=== PATIENT | male | born 1935 | race Caucasian/White ===

== ENCOUNTER 2017-10-02 14:41 | Emergency (ER) | payer MEDICARE, OTHER, SELFPAY ==
[2017-10-02 14:59] VITALS: BP 174/86; PULSE 76; RESP 16; TEMP 36.9; O2SAT 97
--- NOTE | 2017-10-02 16:12 | ED_ITS ---
HPI - Extremity Injury (Upper) <CHENG Arnold - Last Filed: 10/02/17 21:59> General Chief Complaint: Extremity Injury, Upper Stated Complaint: CUT PALM OF HAND Time Seen by Provider: 10/02/17 15:28 History of Present Illness HPI narrative: 81-year-old male with history of dementia here for laceration to his left palm area. He was at home and walking in the garage when he had a ground level fall with outstretched left hand causing laceration to the palm area after hitting weed eater. No known head injuries. No loss of consciousness. No other injuries are reported. Unknown last tetanus shot. Related Data Home Medications Medication Instructions Recorded Confirmed ASPIRIN (#ASPIR 81) 81 mg PO EVERY OTHER DAY #0 09/21/11 alfuzosin [Uroxatral] 10 mg #0 04/11/16 Previous Rx's Medication Instructions Recorded donepezil [Aricept] 10 mg PO HS #90 tab 08/29/17 Allergies Allergy/AdvReac Type Severity Reaction Status Date / Time No Known Allergies Allergy Uncoded 08/16/17 11:50 Review of Systems <CHENG Arnold - Last Filed: 10/02/17 21:59> Constitutional Denies chills, Denies fever(s), Denies lethargy and Denies weakness Eyes Denies change in vision, Denies eye discharge, Denies irritation and Denies loss of vision ENT Ears, Nose, Mouth, and Throat: Denies change in voice, Denies neck pain and Denies sore throat Cardiovascular Denies chest pain, Denies irregular heart rhythm, Denies lightheadedness, Denies palpitations and Denies orthopnea Gastrointestinal Gastrointestinal: Denies abdominal pain, Denies change in bowel habits, Denies diarrhea, Denies nausea and Denies vomiting Genitourinary Denies hematuria, Denies flank pain, Denies urinary incontinence and Denies urinary urgency Musculoskeletal Denies neck pain Comments: Laceration of left palm Integumentary/Breasts Denies pruritus, Denies erythema, Denies rash and Denies wounds Neurologic Denies loss of vision and Denies weakness Endocrine Denies palpitations Exam <CHENG Arnold - Last Filed: 10/02/17 21:59> Initial Vital Signs Initial Vital Signs: Vital Signs Temperature 98.4 F 10/02/17 14:59 Pulse Rate 76 10/02/17 14:59 Respiratory Rate 16 10/02/17 14:59 Blood Pressure 174/86 H 10/02/17 14:59 Pulse Oximetry 97 10/02/17 14:59 Const General: cooperative and well developed Nutritional Appearance: well nourished Orientation: alert, awake, oriented to person, oriented to place and not confused [facility] Mouth: oral mucosae normal and moist mucous membranes Eyes Conjunctivae: conjunctivae normal Sclera: sclerae normal Pupils: PERRL EOM: EOM intact bilaterally Neck Neck: normal visual inspection, No midline deformity and No tender Resp Effort & Inspection: normal respiratory effort, able to speak in complete sentences, no respiratory distress and no use of accessory muscles Auscultation: clear to auscultation bilaterally, no rales, no rhonchi and no wheezes Cardio Rate: regular rate Rhythm: regular rhythm Heart Sounds: no click, no gallops, no murmurs and no rubs GI Inspection: non-distended Palpation: soft, no hepatosplenomegaly, No guarding, No pulsatile mass and No tender Auscultation: normal bowel sounds Skin General: no rashes or lesions noted, No jaundice and No petechiae Extrem Other: 6 cm laceration to the left palm area with another 2 cm laceration just to the radial aspect of the left palm. Distal sensation is intact. Distal range of motion is intact. Distal cap refill less than 2 sec. <Tish Kwong DO - Last Filed: 10/03/17 08:55> Initial Vital Signs Initial Vital Signs: Vital Signs Temperature 98.4 F 10/02/17 14:59 Pulse Rate 76 10/02/17 14:59 Respiratory Rate 16 10/02/17 14:59 Blood Pressure 174/86 H 10/02/17 14:59 Pulse Oximetry 97 10/02/17 14:59 Procedures <CHENG Arnold - Last Filed: 10/02/17 21:59> Joint Aspiration/Injection Laceration 1: Site: hand Side (If applicable): left Size (cm): 6 Description: flap Depth: simple, single layer Local Anesthetic: lidocaine 1% Amount of anesthesia used (mL): 4 Pre-repair: wound explored and irrigated extensively Skin layer closed with: nylon Size (cm): 4-0 Number of sutures: 10 Technique: simple, interrupted Size: 4-0 Laceration 2: Site: hand Side (If applicable): left Size (cm): 1.5 Description: flap Depth: simple, single layer Pre-repair: wound explored and irrigated extensively Skin layer closed with: nylon Size (cm): 4-0 Number of sutures: 2 Technique: simple, interrupted Course <CHENG Arnold - Last Filed: 10/02/17 21:59> Orders Ordered: Discontinued Medications Diphtheria/Tetanus/Acell Pertussis (Adacel) 0.5 ml IM .ONCE ONE Stop: 10/02/17 16:51 Last Admin: 10/02/17 17:18 Dose: 0.5 ml Vital Signs - 8 hr 10/02/17 14:59 10/02/17 17:36 Temperature 98.4 F Pulse Rate 76 69 Respiratory Rate 16 20 Blood Pressure 174/86 H 166/82 H Pulse Oximetry 97 97 <Tish Kwong DO - Last Filed: 10/03/17 08:55> Orders Ordered: Discontinued Medications Diphtheria/Tetanus/Acell Pertussis (Adacel) 0.5 ml IM .ONCE ONE Stop: 10/02/17 16:51 Last Admin: 10/02/17 17:18 Dose: 0.5 ml Vital Signs - 8 hr 10/02/17 14:59 10/02/17 17:36 Temperature 98.4 F Pulse Rate 76 69 Respiratory Rate 16 20 Blood Pressure 174/86 H 166/82 H Pulse Oximetry 97 97 MDM - Extremity Injury (Upper) <CHENG Arnold - Last Filed: 10/02/17 21:59> Medical Records Lacerations left palmar closed with 4 0 nylon sutures with 10 simple interrupted sutures to long laceration and 2 simple interrupted sutures to shorter laceration. Patient tolerated well no complications. Tetanus updated in the emergency room today. Wound dressed with bacitracin and a dressing. Sutures removed in 7-10 days. Keep wound area clean and dry for 24 hr after that may shower briefly dry wound after shower redressed with bacitracin dressing. Dress wound daily with bacitracin and dressing until healed. For any worsening symptoms return to the emergency room. Discharge Plan Departure Patient Disposition: Home, Self-Care Clinical Impression: Laceration of left hand Discharge Date/Time: 10/02/17 17:36 Interventions: ED Discharge Assessment Last Done: 10/02/17 17:36 Instructions: DI for Laceration Repair Activity Restrictions/Additional Instructions: Lacerations left palm closed with 10 simple sutures to long laceration and 2 sutures to shorter laceration. Tetanus updated in the emergency room today. Wound dressed with bacitracin and a dressing. Sutures removed in 7-10 days. Keep wound area clean and dry for 24 hr after that may shower briefly then dry wound after shower and redress with bacitracin and dressing. Dress wound daily with bacitracin and dressing until healed. For any worsening symptoms return to the emergency room. Prescriptions: No Action ASPIRIN (#ASPIR 81) 81 mg PO EVERY OTHER DAY Qty: 0 RF: 0 alfuzosin [Uroxatral] 10 MG tablet extended release 24 hr 10 mg Qty: 0 RF: 0 donepezil [Aricept] 10 MG tablet 10 mg PO HS Qty: 90 RF: 3 Referrals: Phillip Wells MD [Primary Care Provider] - <Tish Kwong DO - Last Filed: 10/03/17 08:55> Cosign ED Attending Kathyature Attestation: I was immediately available in the department for consultation. Documentation has been reviewed. I agree with assessment and plan.
[2017-10-02] MEDS: TET,DIPH,PERTUSS(ACELL),VAC/PF 0.5 ML SYRINGE IM (17:18)
--- NOTE | 2017-10-02 17:34 | PC.NURSE ---
approx 4cm lac to lt palm distal cms intact bleeding controlled full arom
[2017-10-02 17:36] VITALS: BP 166/82; PULSE 69; RESP 20; O2SAT 97
== END 2017-10-02 17:36 | disposition home or self-care (01) ==
PROVIDERS: Emergency Provider Nurse Practitioner Family; Family Provider Internal Medicine; PCP Internal Medicine
DX: S61.412A Laceration without foreign body of left hand, initial encounter (principal)
CPT/HCPCS: 12002; 90471; 99283; 90715

== ENCOUNTER 2018-09-02 11:41 | Emergency (ER) | payer MEDICARE, OTHER, SELFPAY ==
[2018-09-02 13:13] VITALS: BP 148/50; PULSE 58; RESP 16; TEMP 36.5; O2SAT 100
[2018-09-02 13:30] VITALS: BP 138/54; PULSE 59; RESP 18; O2SAT 100
[2018-09-02 13:43] VITALS: BP 138/54; PULSE 58; RESP 16; TEMP 36.5; O2SAT 100
--- NOTE | 2018-09-02 14:03 | ED_ITS ---
HPI - Wound/Laceration <CHENG Hutchinson - Last Filed: 09/02/18 14:03> General Chief Complaint: Wound/Laceration Stated Complaint: left ear injury Time Seen by Provider: 09/02/18 13:05 Source: patient and family (spouse) Mode of arrival: wheelchair Limitations: no limitations History of Present Illness HPI narrative: spouse says he was sitting in chair went to get up, has chronic issues with L side not working right and weaker than R, couldn't quite make it all the way up and fell back down into chair, on way down hit the L side of his face on tv tray and the top of L hand on tray, has Lac to ear that she washed and tacked back up, and has scrape and bruise to top of L hand that she washed and bandaged, R handed, has bruise to L side of face/cheek, Td utd, denies any other injury/issues, says pt is at his baseline/normal neuro baseline, no loc and only complains of ear hurting Onset (ago): minute(s) Location: face (L cheek and L ear) Extremity Location: Left: hand Place: home Patient tetanus UTD: Yes Context: fall (near fall) Associated symptoms: pain Treatments prior to arrival: bandage Related Data Home Medications Medication Instructions Recorded Confirmed ASPIRIN (#ASPIR 81) 81 mg PO EVERY OTHER DAY #0 09/21/11 07/09/18 Previous Rx's Medication Instructions Recorded donepezil [Aricept] 10 mg PO HS #90 tab 08/29/17 [address]ing #1 each 10/09/17 tamsulosin 0.4 mg capsule 0.4 mg PO BID #60 cap 07/09/18 Allergies Allergy/AdvReac Type Severity Reaction Status Date / Time No Known Drug Allergies Allergy Verified 09/02/18 13:43 Review of Systems <CHENG Hutchinson - Last Filed: 09/02/18 14:03> Review of Systems ROS Unobtainable: All systems reviewed & are unremarkable except as noted in HPI and below Constitutional Reports as per HPI, Reports system reviewed and no additional complaints, except as docu, Denies frequent falls, Denies headache(s), Denies lethargy and Denies weakness Eyes Denies blurry vision, Denies change in vision, Denies loss of peripheral vision, Denies loss of vision, Denies eye pain and Denies requires corrective lenses ENT Ears, Nose, Mouth, and Throat: Reports as per HPI, Denies dental pain, Denies vertigo, Denies dizziness, Denies ear discharge, Reports otalgia, Denies facial pain, Denies headache(s), Denies hearing loss, Denies lip swelling, Denies mouth pain, Denies nasal discharge, Denies nasal trauma, Denies neck pain and Denies nose pain Cardiovascular Denies chest pain and Denies dyspnea Respiratory Denies dyspnea Gastrointestinal Gastrointestinal: Denies diarrhea and Denies vomiting Musculoskeletal Reports as per HPI, Denies back pain, Denies deformity, Denies joint swelling, Denies limited range of motion and Denies neck pain Integumentary/Breasts Reports as per HPI and Reports wounds Neurologic Denies vertigo, Denies dizziness, Denies frequent falls, Denies headache(s), Denies loss of vision and Denies weakness Allergic/Immunologic Denies lip swelling PFSH <CHENG Hutchinson - Last Filed: 09/02/18 14:03> Medical History Hyperlipidemia (Chronic) Benign prostatic hyperplasia (Chronic) Dementia without behavioral disturbance (Chronic 06/07/16) Essential hypertension (Chronic 11/04/16) Social History Smoking Status: Former smoker Social History Smoking Status: Former smoker Exam <CHENG Hutchinson - Last Filed: 09/02/18 14:03> Initial Vital Signs Initial Vital Signs: Vital Signs Temperature 97.7 F 09/02/18 13:13 Pulse Rate 58 L 09/02/18 13:13 Respiratory Rate 16 09/02/18 13:13 Blood Pressure 148/50 H 09/02/18 13:13 Pulse Oximetry 100 09/02/18 13:13 Const General: cooperative, healthy appearing, comfortable, well developed and well groomed Nutritional Appearance: average body habitus Orientation: alert, awake, oriented to person, not oriented to place and not oriented to time [facility] Head: normal to inspection, normocephalic, No hematoma and No laceration Ears: hearing grossly normal bilaterally, external ears abnormal, TM's normal bilaterally, mastoids normal and other (L shaped lac with flap to one side) Nose: external nose normal, nares normal, septum normal and No epistaxis Face and sinus: sinuses tender, face symmetric, no abrasions, ecchymosis (linear contusion across the zygomatic arch and cheek bone area approx 4cm), no edema and no lacerations Mouth: oral mucosae normal, lip normal, tongue normal, oropharynx normal, moist mucous membranes and No mouth trauma Teeth and gingiva: dentition normal and gingiva normal Throat: posterior oropharynx normal, tonsils normal and uvula midline Eyes General: appearance normal, both eyes and all related structures Visual Vo: normal visual vo by confrontation Eyelids: eyelids normal Conjunctivae: conjunctivae normal Sclera: sclerae normal Pupils: PERRL EOM: EOM intact bilaterally Direct ophthalmoscopy: normal light reflex, no papilledema, fundi normal bilaterally and anterior chamber normal Neck Neck: normal visual inspection, full ROM, no meningeal signs, trachea midline, supple, No lymphadenopathy, No midline deformity, No tender and No tracheal deviation Chest Chest: normal inspection of the chest Resp Effort & Inspection: normal respiratory effort and able to speak in complete sentences Auscultation: clear to auscultation bilaterally Cardio Rate: regular rate Rhythm: regular rhythm Heart Sounds: S1 normal and S2 normal Back/Spine/Pelvis Back: normal to inspection and No back tenderness Cervical Spine: cervical ROM normal Thoracic/Lumbar Spine: thoracic and lumbar spine normal to inspection and thoraco-lumbar ROM normal Sacroiliac Joints: nontender Skin General: no rashes or lesions noted, elasticity normal, turgor normal and dry skin Neuro General: alert, awake, oriented x3 and meningeal signs present Cognition: normal cognition Speech: speech normal Gait: normal gait Motor: muscle tone normal throughout Sensory Exam: no sensory deficits noted Extrem General: normal to inspection and full ROM Right upper extremity: full ROM, normal capillary refill and hand (contusion with 1/2 cm abrasion in center, nontender, no swelling, from) Left upper extremity: full ROM and normal capillary refill Right lower extremity: full ROM Left lower extremity: full ROM Psych Appearance: grossly normal and well kempt Mental Status: mental status grossly normal Speech and Movement: speech and movement normal Mood: congruent mood Affect: normal affect Attitude: cooperative Thought Process: normal Thought Content: normal Judgment: judgment good <Tish Botnick, DO - Last Filed: 09/03/18 10:42> Initial Vital Signs Initial Vital Signs: Vital Signs Temperature 97.7 F 09/02/18 13:13 Pulse Rate 58 L 09/02/18 13:13 Respiratory Rate 16 09/02/18 13:13 Blood Pressure 148/50 H 09/02/18 13:13 Pulse Oximetry 100 09/02/18 13:13 Procedures <CHENG Hutchinson - Last Filed: 09/02/18 14:03> Laceration Repair L ear: Site: scalp (L ear) Side (If applicable): left Size (cm): 1.5 Description: linear, flap and clean Depth: simple, single layer Pre-repair: wound explored, irrigated extensively and deep structures intact Skin layer closed with: dermabond Course <CHENG Hutchinson - Last Filed: 09/02/18 14:03> Course Narrative: discussed whether to do imaging of face and hand, spouse does not want the images done, and medically no concern for fx, ct head not medically needed per percarn criteria Vital Signs - 8 hr 09/02/18 13:13 09/02/18 13:43 Temperature 97.7 F 97.7 F Pulse Rate 58 L 58 L Respiratory Rate 16 16 Blood Pressure 138/54 L Blood Pressure [Left Arm] 148/50 H Pulse Oximetry 100 100 <Tish Kwong DO - Last Filed: 09/03/18 10:42> Vital Signs - 8 hr 09/02/18 13:13 09/02/18 13:43 Temperature 97.7 F 97.7 F Pulse Rate 58 L 58 L Respiratory Rate 16 16 Blood Pressure 138/54 L Blood Pressure [Left Arm] 148/50 H Pulse Oximetry 100 100 MDM - Wound/Laceration <CHENG Hutchinson - Last Filed: 09/02/18 14:03> Differential Diagnosis Differential diagnosis: Likely laceration, abrasion, avulsion of skin and other (near fall, fx, head injury, contusion) Discharge Plan Departure Patient Disposition: Home Clinical Impression: Laceration, Abrasion Contusion Qualifiers: Encounter type: initial encounter Contusion area: head Contusion of head detail: other part of head Qualified Code(s): S00.83XA - Contusion of other part of head, initial encounter Contusion of hand Qualifiers: Encounter type: initial encounter Laterality: left Qualified Code(s): S60.222A - Contusion of left hand, initial encounter Discharge Date/Time: 09/02/18 14:11 Interventions: ED Discharge Assessment Last Done: 09/02/18 14:10 Instructions: DI for Laceration Repair, DI for Contusion, DI for Abrasion Prescriptions: No Action ASPIRIN (#ASPIR 81) 81 mg PO EVERY OTHER DAY Qty: 0 RF: 0 donepezil [Aricept] 10 MG tablet 10 mg PO HS Qty: 90 RF: 3 Disabled Parking Qty: 1 RF: 0 tamsulosin 0.4 mg capsule 0.4 mg PO BID Qty: 60 RF: 6 Referrals: Phillip Wells MD [Primary Care Provider] - (recommend follow up in approx 3 days for wound recheck) <Tish Kwong DO - Last Filed: 09/03/18 10:42> Cosign ED Attending Cosakiature Attestation: I was immediately available in the department for consultation. Documentation has been reviewed. I agree with assessment and plan.
== END 2018-09-02 14:11 | disposition home or self-care (01) ==
PROVIDERS: Emergency Provider Nurse Practitioner; PCP Internal Medicine
DX: S01.312A Laceration without foreign body of left ear, initial encounter (principal); S60.222A Contusion of left hand, initial encounter; W19.XXXA Unspecified fall, initial encounter
CPT/HCPCS: 99282; 99283

== ENCOUNTER → 2018-10-23 09:24 | Outpatient (CLI) | payer MEDICARE, OTHER, SELFPAY ==
--- NOTE | 2018-10-23 09:27 | DI.RAD.S_ITS ---
PROCEDURE: FL BARIUM SWALLOW W SPEECH INDICATIONS: Dysphagia TECHNIQUE: Examination was conducted in conjunction with speech pathology per standard protocol. In the lateral projection, filming was performed of the patient swallowing. AP projection filming may also be performed with patient swallowing. COMPARISON: [facility], , BARIUM SWALLOW, 09/26/2011, 8:21. FINDINGS: Function: The oral preparatory phase appears normal, with proper containment. The subsequent oral propulsive phase, pharyngeal phase, and esophageal phase of swallowing also appear normal with all proffered substances. No laryngotracheal penetration or aspiration. No pathologic vallecular pooling. Morphology: No cricopharyngeal bar is identified. No cervical esophageal webs. No Zenker's diverticulum. No strictures. IMPRESSION: No aspiration Dictated by: Alber Wren M.D. on 10/23/2018 at 10:29 Approved by: Alber Wren M.D. on 10/23/2018 at 10:29
--- NOTE | 2018-10-23 17:28 | ST.SWALLOW ---
Care Team Visit Care Team Role Provider Type Phillip Wells MD Attending Provider Physician Primary Care Provider Specialty: Internal Medicine Address: [address] [place] [address], [id number] Email: [email or web address] Modified Barium Swallow Study CYBER SECURITY SPECIALIST Modified Barium Swallow Study Start: 10/23/18 12:21 Freq: Status: Active Protocol: Document 10/23/18 12:22 FABIEN (Rec: 10/23/18 12:33 FABIEN [id number]) Modified Barium Swallow Study Total Time Visit Start Time 09:30 Visit Stop Time 10:00 Total Visit Minutes [address] Wells Reason for Referral Dysphagia; Recommended by outpatient treating CYBER SECURITY SPECIALIST Setting Setting Outpatient Care Patient Information Identification Type Name ID Card Patient History 82-yr-old male being seen for dysphagia and speech therapy at [facility] outpatient rehab clinic. Treating CYBER SECURITY SPECIALIST is Dr. Heaven Mason who requested MBS after completing clinical swallow evaluation in clinic. Pt's history comes from CYBER SECURITY SPECIALIST and spouse reports, as the pt was unable to provide secondary to expressive aphasia. The pt was diagnosed in 2016 with frontotemporal dementia and progressive nonfluent aphasia. Recent visits with Dr. Wells indicate the possiblility that the pt has Progressive Supraneuclear Palsy (PSP). The pt c/o trouble swallowing liquids only, although his reported coughing with liquids, solids and saliva, and that this has worsened in the last ~2 mos. The pt has not had frequent pneumonia, and his reported that they have gotten shots to prevent it from happening. Subjective Observations The pt arrived with his . He ambulated with 4WW and standby assistance and was assisted by hospital staff into MBS chair. Throughout the study, the pt spoke little, only yes and It was nice to meet you, too. When prompted to produce volitional cough, he spoke into his arm, Cough, cough. Upon 2nd attempt he said, Ah-julio. Unclear if the pt was confused by instructions or simply unable to produce volitional cough. He made eye contace when spoken to but exhibited flat affect throughout the study. Patient Positioning Position View Lat-A/P Imaging Lateral View Textures Administered Trials Presented Thin Liquid via Spoon Thin Liquid via Cup [place] Liquid via Spoon [place] Liquid via Cup [place] Liquid via Spoon Dysphagia Blenderized Textures Regular Textures Oral Phase Source: MBSIMP (TM) (C) Bolus Specific Scoring Grid Lip Closure No Impairment (WNL) Tongue Control During Bolus Hold Mild Impairment Bolus Prep/Mastication Minimal Impairment Bolus Transport/Lingual Motion Minimal Impairment A/P Lingual Propulsion Delay No Oral Residue Mild Impairment Residue Clearing Mild Impairment Nasal Regurgitation No Additional Oral Phase Observations Oral Peripheral Exam: Pt has complete natural dentition in good condition for age. Mild lingual deviation to right side observed upon protrution. Mildly reduced lingual strength and ROM with lip retraction. When asked to lateralize jaw, the pt lateralized lower lip instead. Soft palate elevates upon phonation. Pt able to produce volitional swallow, unable to produce volitional cough; instead verbalized cough, cough and ah-chew. Oral Phase: The pt consumed large sips of liquids with frequent escaper to floor of mouth. He was able to re- collect and prepare bolus adequately for a/p propulsion. Occasional lingual rocking noted, as well as consistent mild-moderate oral residue that escaped to pharynx post- swallow. This mostly cleared when pt was cued to dry swallow. Mastication WFL. Pharyngeal Phase Source: MBSIMP (TM) (C) Bolus Specific Scoring Grid Delayed Initiation of Pharyngeal Swallow Yes Number of Seconds Delayed (seconds) Up to 5 sec Soft Palate Elevation No Impairment (WNL) Tongue Base Strength/Range of Motion Mild Impairment Residue Along the Tongue Base Yes Clearance of Residue Along Tongue Base Mild Impairment Laryngeal Elevation WFL Anterior Hyoid Movement Moderate Impairment Epiglottic Range of Motion Mild Impairment Vallecular Residue Yes Clearance of Vallecular Residue Mild Impairment Laryngeal Vestibular Closure WFL Pharyngeal Stripping Wave Minimal Impairment Posterior Pharyngeal Wall Residue Yes Clearance of Posterior Pharyngeal Wall Mild Impairment Residue Upper Esophageal Sphincter Opening WFL Residue in the Pyriform Sinuses Yes Clearance of Residue in the Pyriform Mild Impairment Sinuses Esophageal Clearance Upright Position No Impairment (WNL) Pharyngoesophageal Backflow Observed No Additional Pharyngeal Phase Observations No penetration or aspiration of substances was observed. Lingual and pharyngeal wall weakness contributes to mild- moderate pharyngeal residue, which pools if subsequent swallow is not produced. This increases the pt's risk of aspiration post-swallow. Hyolaryngeal elevation is WFL; however, anterior propulsion is minimal, contributing to inconsistent inversion of epiglottis and subsequent residue at valeculae, pharyngeal wall, and pyriform sinuses. A/P View Textures Administered Trials Presented Thin Liquid via Straw Dysphagia Blenderized Textures Barium Tablet A/P View Observations Residue Observed Pyriform Sinus Right Esophageal Function WFL Esophageal Clearance Upright Position WFL Additional Observations Unable to visualize swallows of NTL and pudding in A/P view , as the pt swallowed prior to engagement of x-ray. The pt was exhibiting difficulty following directions given environmental distractions and close quarters of fluroscopy equipment. He swallowed barium tablet prior to taking liquid . The tablet was observed resting in the pyriform sinuses and then rapidly cleared the pharynx and upper esophagus upon intake of water . Only the upper esophagus was able to be visualized d/t seated position of the pt. The pt did exhibit an immediate strong cough upon swallow of this thin liquid, which did not contain barium and was, therefore, unable to be visualized. Penetration and possible aspiration are assumed but cannot be confirmed. Suspect environmental distractors contributed to swallow difficulty and may reflect situations in which swallowing becomes more problematic for this pt. Esophageal Observations Esophageal Function Proximal esophagus only was able to be viewed. No stasis, backflow or other abnormality observed. Clinical Impressions Dysphagia Type Mild Oropharyngeal Dysphagia Findings Pt presents with Mild Oropharyngeal Dysphagia characterized by reduced strength, coordination and/or ROM of swallow musculature and resulting in oral and pharyngeal residue, incomplete and inconsistent epiglottic inversion, and airway compromise particularly in the presence of environmental distractors or pt confusion. Swallow function and safety are likely impacted by frontotemporal dementia and possible Progressive Supraneuclear Palsy (PSP) and anticipated to worsen with progression of these diseases. Rehabilitation Potential Fair Patient Appropriate for Therapy Yes: Continue outpatient treatment Recommendations Diet Liquids Order Thin Diet Order Regular Medication Recommendation As Tolerated Additional Dietary Needs Single Sips Reminders to Use Strategies Aspiration Precautions Recommended Precautions Upright at 90 Degrees Frequent Rest Periods Small Bites/Sips Effortful Swallow Double Swallow Treatment Plan Therapy Recommendations Outpatient Speech Therapy Oral Motor Exercises Lingual Exercises Base of Tongue Exercises Compensatory Strategy Education Compensatory Strategies Recommendations Sitting Upright (90 deg) Double Swallow No Straw Liquids from Cup Small Bites and Sips Short Term Goals See goals established by Dr. Mason in outpatient POC. Recommend exercises target increasing lingual strength/ coordination to reduce oral residue, hyolaryngeal anterior propulsion for improved airway protection and epiglottic inversion, and pharyngeal musculature strength and coordination to promote pharyngeal clearance and reduce risk of aspiration post-swallow. Ongoing education as needed. Assisted Goals Pt will tolerate least restrictive diet to meet his nutrition and hydration needs. Placement Recommendation After Discharge Home Outpatient Therapy
== END ==
PROVIDERS: PCP Internal Medicine; Visit Provider Internal Medicine
DX: R13.10 Dysphagia, unspecified (principal)
CPT/HCPCS: 74230; 92611

== ENCOUNTER 2018-11-06 13:30 | Outpatient (RCR) | payer MEDICARE, OTHER, SELFPAY ==
--- NOTE | 2018-10-09 18:08 | ST.OPIE ---
Provider Information Visit Care Team Role Provider Type Phillip Wells MD Attending Provider Physician Primary Care Provider Specialty: Internal Medicine Address: [address] [place] [address], [id number] Email: [email or web address] Speech-Language Pathology Initial Evaluation PHOTOVOLTAIC TESTING TECHNICIAN Clinical Instructor Line Start: 10/08/18 18:09 Freq: Status: Active Protocol: Document 10/09/18 18:06 LNK (Rec: 10/09/18 18:07 LNK [id number]) Clinical Instructor Signature Clinical Instructor Clinical Instructor Yes: Heaven Mason, PhD , [facility]-PHOTOVOLTAIC TESTING TECHNICIAN PHOTOVOLTAIC TESTING TECHNICIAN Clinical Swallow Evaluation Start: 10/05/18 13:14 Freq: Status: Active Protocol: Document 10/05/18 17:15 MG (Rec: 10/08/18 11:26 MG [id number]) Clinical Swallow Evaluation Session Time Visit Start Time 14:30 Visit Stop Time 15:30 Total Visit Minutes 60 Visit Information Insurance Information Medicare Referral Referring Physician Dr. Wells Reason for Referral Swallowing difficulties Setting Assessment Location Outpatient Care Visit Type Note Type Initial Evaluation Next Note Type Next Note Type Treatment Note Patient Information Identification Type Name History Aakash Fitzpatrick (Bob), an 82- year-old male, was seen at [facility] for a clinical swallow evaluation for suspected aspiration/ swallowing difficulties. Jose Carlos was accompanied by his , who was present for the entire session. 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 Recent visits with Dr. 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 They have an appointment with a neurologist in March to confirm this or diagnose with something else. Jose Carlos noted that he feels he only has trouble swallowing liquids such as his morning coffee. Jose Carlos reports that he coughs at times when drinking thin liquids. Both Jose Carlos and his report that his swallowing has gotten worse within the past 2 months . Jose Carlos has not had frequent pneumonia and his reported that they have gotten shots to prevent it from happening. Subjective Observations Jose Carlos appeared to be in a good mood. Needed assistance with walking and transferring from chair to walker. Jose Carlos walks at a slower pace. His body appeared stiff-like. Jose Carlos's speech appeared effortful and he spoke using 1-4 word utterances. Jose Carlos appeared to comprehend and answer questions appropriately. No coughing observed before, during, or after trials of thin liquid. Evaluation Liquids Trialed Ice Chips Administration Type Tea Spoon Dependent Feeding Oral Impairment Mildly Impaired Oral Strategies Upright at 90 degrees Double Swallow Controlled Bite/Sip Size Oral Phase Comments Pt appeared to masticate the ice chips in an appropriate time frame. No oral spillage observed. Informal OME revealed stiff-like movements and slightly reduced ROM of muscles for mastication. Jose Carlos and his reported that he is currently on a regular diet , but at times will eat softer foods for ease of chewing. Jose Carlos reported that he tends to take big bites/sips. Pharyngeal Impairment Mildly Impaired Pharyngeal Strategies Sitting Upright (90 deg) Chin Tuck Small Bites and Sips Pharyngeal Phase Comments For ice chip trials, Jose Carlos did not show any s/sx of aspiration from the small amount of thin liquid. No wet voice observed post-swallow. No immediate or delayed cough observed. Jose Carlos reported that he did not feel like it was stuck or didn't go the right way. Jose Carlos and his reported that he will cough while drinking thin liquids (e.g., coffee). Jose Carlos reported to take large sips of his drink. Jose Carlos reported that he will cough if liquids go the wrong way. Larnyngeal palpation noted hyolaryngeal elevation, but little to no anterior excursion of the hyoid bone. Chin tuck was trialed, but it appeard Jose Carlos is unable to do this maneuver possibly due to rigidity. Findings Dysphagia Type Suspected oropharyngeal dysphagia Rehabilitation Potential Good Impressions Jose Carlos most likely has oropharyngeal dysphagia as reported by him and his in regards to coughing on thin liquids and observations noted during the evaluation. It was recommended at the time of the evaluation that Jose Carlos receive a MBSS in order to rule out silent aspiration as well as determine specific type of dysphagia. Jose Carlos and his were in agreement with this recommendation. PHOTOVOLTAIC TESTING TECHNICIAN wrote slip to have them drop off at Dr. Wells's office to get a referral for an MBSS. Student PHOTOVOLTAIC TESTING TECHNICIAN provided education around the swallowing mechanism, details of MBSS, treatment for speech therapy, the usage of AAC, and information around PSP and dysphagia. Diet Recommendations Liquids Order Thin Diet Order Regular Medication Recommendations As Tolerated Additional Dietary Needs Single Sips Aspiration Precautions Recommended Precautions Upright at 90 Degrees Frequent Rest Periods Small Bites/Sips Treatment Plan Placement Recommendations after Home Discharge Appropriate for Therapy Yes Therapy Recommendations Jose Carlos is a candidate for ST focusing on dysphagia and expressive communication. MBSS should be scheduled ASA to r /o silent aspiration and determine safest diet/liquid order for Jose Carlos at this time as well as create a HEP to strengthen the muscles of swallowing. Dysphagia Goals Jose Carlos will tolerate least restrictive diet and not show any s/sx of aspiration while maintaining hydration and nutrition needs. After MBSS, Jose Carlos will follow HEP designed by speech therapist in order to strengthen muscles of swallowing if applicable. Referrals/Other Recommended Referrals Neurology
--- NOTE | 2018-10-09 18:08 | ST.OPPOC ---
Care Team Visit Care Team Role Provider Type hPillip Wells MD Attending Provider Physician Primary Care Provider Address: [address] [place] [address], [id number] Speech Pathology Plan of Care WARD AIDE Clinical Instructor Line Start: 10/08/18 18:09 Freq: Status: Active Protocol: Document 10/09/18 18:06 LNK (Rec: 10/09/18 18:07 LNK [id number]) Clinical Instructor Signature Clinical Instructor Clinical Instructor Yes: Heaven Mason, PhD , CCC-WARD AIDE Speech Pathology Plan of Care Rehabilitation Potential Good Please Sign and Return: I have reviewed this Plan of Care and certify that the skilled therapy services above are required to meet the patient?s needs. Physician Signature Date Printed Name and Credentials Clinical Instructor Signature Printed Name and Credentials
--- NOTE | 2018-10-12 15:48 | ST.OPTN ---
Care Team Visit Care Team Role Provider Type Phillip Wells MD Attending Provider Physician Primary Care Provider Address: [address] [place] [address], [id number] BOARD LAYER Treatment Note BOARD LAYER Clinical Instructor Line Start: 10/08/18 18:09 Freq: Status: Active Protocol: Document 10/12/18 15:42 LNK (Rec: 10/12/18 15:42 LNK [id number]) Clinical Instructor Signature Clinical Instructor Clinical Instructor Yes: Isabella, PhD, [facility]- BOARD LAYER BOARD LAYER Treatment Note Start: 10/05/18 13:14 Freq: Status: Active Protocol: Document 10/12/18 14:54 MG (Rec: 10/12/18 15:10 MG [email or web address]) Speech Pathology Treatment Note Session Time Visit Start Time 13:35 Visit Stop Time 14:25 Total Visit Minutes 50 Visit Information Visit Number 2 Plan of Care Dates 10/09/18-01/09/19 Insurance Information Medicare Setting Treatment Setting Outpatient Care Visit Type Note Type Treatment Note Next Note Type Next Note Type Treatment Note General Information General Information Aakash Fitzpatrick (Bob), an 82- year-old male, was seen at [facility] for a clinical swallow evalution for suspected aspiration/ swallowing difficulties. Jose Carlos was accompanied by his , who was present for the entire session. 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 Recent visits with Dr. 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 They have an appointment with a neurologist in March to confirm this or diagnose with something else. Jose Carlos noted that he feels he only has trouble swallowing liquids such as his morning coffee. Jose Carlos reports that he coughs at times when drinking thin liquids. Both Jose Carlos and his report that his swallowing has gotten worse within the past 2 months . Jose Carlos has not had frequent pneumonia and his reported that they have gotten shots to prevent it from happening. Subjective Identification Type Name Others Present Family Observations/Patient Presentation Jose Carlos appeared to be in a good mood and was on time for his appointment. Rehab Expectation/Goals: Patient Goals Reduce dysphagia, work on expressive language/increasing loudness Rehab Expectation/Goals: Parent/Guardian Reduce dysphagia, work on /Food Assembler Goals expressive language/increasing loudness Patient Knowledge/Awareness of BOARD LAYER Role Good in Treatment Parent/Caretake Knowledge/Awareness of Good BOARD LAYER Role in Treatment Patient/Caregiver Compliance with Home Good Exercise Program Objective Short Term Goals Jose Carlos will follow HEP designed by speech therapist in order to strengthen muscles of swallowing and reduce coughing /choking episodes. Jose Carlos will have adequate respiratory volume and speak at an appropriate loudness level during conversations in order to increase expressive language and length of utterance. Skilled Nursing Goals Jose Carlos will tolerate least restrictive diet and not show any s/sx of aspiration while maintaining hydration and nutrition needs. Treatment Activities Student BOARD LAYER provided education on the swallowing mechanism, resources for PSP, AAC information, and HEP. Jose Carlos appeared to follow along in education provided and practiced exercises with the student BOARD LAYER and his . Jose Carlos appeared to move slower after given verbal directions, but would eventually do what was asked of him. Jose Carlos and Jose Carlos's both reported that he still takes big bites/sips of things and this morning began coughing after drinking coffee . Student BOARD LAYER recommended to have visual reminders near his food to slow down and take small bites/sips. Jose Carlos agreed that a visual would help him remember. Student BOARD LAYER sent home exercises to increase the strength of the swallowing mechanism. Jose Carlos practiced in front of the student BOARD LAYER and was judged to be adequately performing exercises. Jose Carlos was agreeable to practice at home. Student BOARD LAYER encouraged Jose Carlos to also continue practicing belly breathing in order to have enough respiratory support to project his voice. LSVT Loud may be a good therapy strategy for Jose Carlos as it was noted when he took a bigger breath of air, his voice was louder and projected for a longer period of time. Assessment Patient Response to Treatment Good Rehab Potential Good Impairments Identified ADLs Articulation Aphasia Expressive Language Vocal Quality Progress Towards Goals Good Progress Assessment of Overall Progress Improving Reviewed with Patient Goals Home Exercise Program Patient/Caregiver Understanding Excellent Plan Amount of Therapy Recommended 12+ Months Frequency of Treatment Once a Week Length of Session 45 Minutes Therapeutic Contents Cognitive-Linguistic Training Compensatory Swallowing Training Expressive Language Training Home Exercise Program Parent Education Training Swallowing/Feeding Voice Training Provided Patient/Caregiver Instruction Home Exercise Program Questions/Concerns Therapy Recommendations Continue with Current Program
--- NOTE | 2018-10-16 12:08 | ST.OPTN ---
Care Team Visit Care Team Role Provider Type Phillip Wells MD Attending Provider Physician Primary Care Provider Address: [address] [place] [address], [id number] FLAT DRIER Treatment Note FLAT DRIER Clinical Instructor Line Start: 10/08/18 18:09 Freq: Status: Active Protocol: Document 10/12/18 15:42 LNK (Rec: 10/12/18 15:42 LNK [id number]) Clinical Instructor Signature Clinical Instructor Clinical Instructor Yes: Isabella, PhD, [facility]- FLAT DRIER FLAT DRIER Treatment Note Start: 10/05/18 13:14 Freq: Status: Active Protocol: Document 10/16/18 11:45 LNK (Rec: 10/16/18 11:58 LNK [email or web address]) Speech Pathology Treatment Note Session Time Visit Start Time 13:35 Visit Stop Time 12:30 Total Visit Minutes 55 Visit Information Visit Number 3 Plan of Care Dates 10/09/18-01/09/19 Insurance Information Medicare Setting Treatment Setting Outpatient Care Visit Type Note Type Treatment Note Next Note Type Next Note Type Treatment Note General Information General Information Aakash Fitzpatrick (Bob), an 82- year-old male, was seen at [facility] for a clinical swallow evaluation for suspected aspiration/ swallowing difficulties. Jose Carlos was accompanied by his , who was present for the entire session. 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 Recent visits with Dr. Wells indicate the possibility that Jose Carlos has Progressive Supraneuclear Palsy (PSP). They have an appointment with a neurologist in March to confirm this or diagnose with something else. Jose Carlos noted that he feels he only has trouble swallowing liquids such as his morning coffee. Jose Carlos reports that he coughs at times when drinking thin liquids. Both Jose Carlos and his report that his swallowing has gotten worse within the past 2 months . Jose Carlos has not had frequent pneumonia and his reported that they have gotten shots to prevent it from happening. Subjective Identification Type Name Others Present Family Observations/Patient Presentation Jose Carlos appeared to be in a good mood and was on time for his appointment. Rehab Expectation/Goals: Patient Goals Reduce dysphagia, work on expressive language/increasing loudness Rehab Expectation/Goals: Parent/Guardian Reduce dysphagia, work on /Head Of Integrated Media Goals expressive language/increasing loudness Patient Knowledge/Awareness of FLAT DRIER Role Good in Treatment Parent/Caretake Knowledge/Awareness of Good FLAT DRIER Role in Treatment Patient/Caregiver Compliance with Home Good Exercise Program Objective Short Term Goals Jose Carlos will follow HEP designed by speech therapist in order to strengthen muscles of swallowing and reduce coughing /choking episodes. Jose Carlos will have adequate respiratory volume and speak at an appropriate loudness level during conversations in order to increase expressive language and length of utterance. Longterm Goals Jose Carlos will tolerate least restrictive diet and not demonstrate s/sx of aspiration while maintaining hydration and nutrition needs. Treatment Activities Worked with Jose Carlos and his to schedule MBSS fro 10/23/18 at 9:30, just before his next scheduled appointment with ST. Reviewed the process of the MBSS with Jose Carlos and his , with discussion re: the potential findings and possible recommendations. Jose Carlos reports that he is choking more on liquids as well as solids. His noted that he has been taking larger than normal bites of solids, especially his WASA cracker with peanut butter on it. A suggestion to break the cracker into smaller bite sized pieces could control size of the bite. Introduced an incentive breather to help Jose Carlos with his abdominal breathing and to increase strength of breathing . He is to practice holding the exhalation for the count of 3 and build to the count of 4. Additionally, he is to use abdominal breathing to project ah or oom for up to the count of 2. Target is to increase breath support and loudness levels for speech. Assessment Patient Response to Treatment Good Rehab Potential Good Impairments Identified ADLs Articulation Aphasia Expressive Language Vocal Quality Progress Towards Goals Good Progress Assessment of Overall Progress Improving Reviewed with Patient Goals Home Exercise Program Plan Amount of Therapy Recommended 3-4 Months Frequency of Treatment Once a Week Length of Session 45 Minutes Therapeutic Contents Cognitive-Linguistic Training Compensatory Swallowing Training Expressive Language Training Home Exercise Program Parent Education Training Swallowing/Feeding Voice Training Provided Patient/Caregiver Instruction Home Exercise Program Questions/Concerns Therapy Recommendations Continue with Current Program
--- NOTE | 2018-10-23 15:08 | ST.IPDYTX ---
Care Team Visit Care Team Role Provider Type Phillip Wells MD Attending Provider Physician Primary Care Provider Specialty: Internal Medicine Address: [address] [place] [address], [id number] Email: [email or web address] KEYPUNCHER Dysphagia Treatment KEYPUNCHER Clinical Instructor Line Start: 10/08/18 18:09 Freq: Status: Active Protocol: Document 10/12/18 15:42 LNK (Rec: 10/12/18 15:42 LNK [email or web address]) Clinical Instructor Signature Clinical Instructor Clinical Instructor Yes: Isabella, PhD, [facility]- KEYPUNCHER KEYPUNCHER Dysphagia Treatment Start: 10/05/18 13:14 Freq: Status: Active Protocol: Document 10/23/18 15:02 LNK (Rec: 10/23/18 15:07 LNK [email or web address]) Dysphagia Treatment Session Time Visit Start Time 10:30 Visit Stop Time 11:30 Total Visit Minutes 60 Visit Information Visit Number 2 Setting Assessment Location Outpatient Care Visit Type Note Type Treatment Note Next Note Type Next Note Type Treatment Note Patient Information Identification Type Name Picture Subjective Observations Jose Carlos and his attended the therapy session. Jose Carlos had just completed the MBS study. 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 Jose Carlos has started to take medication for his disease. Treatment Oral Strategies Upright at 90 degrees Double Swallow Controlled Bite/Sip Size Pharyngeal Strategies Sitting Upright (90 deg) Double Swallow Small Bites and Sips Treatment Activities Reviewed pt's MBS with him and his . The MBS demonsrated a relatively normal swallow with diminished base of tongue strength and ROM. No penetration of aspiration were observed. These results allow us to establish a baseline of Jose Carlos's swallowing at this time. Noted that pharyngeal pooling may be cause of frequent coughing during meals and off and on during the day. Based on the results and observations a double swallow and small amounts at a time were recommended. Double swallow will aid in reducing/ elimination pharyngeal pooling . Additionally an effortful swallow exercise was introduced, demonstrated and practiced. This exercise will increase hyolaryngeal elevation and forward excursion as well as increase base of tongue strength for airway protection. Jose Carlos and his were able to perform the exercise x5 satisfactorily . Assessment Patient Response to Treatment Good Rehab Potential Good Diet Recommendations Recommendations Continue Current Diet Medication Recommendations As Tolerated Aspiration Precautions Recommended Precautions Upright at 90 Degrees Small Bites/Sips Double Swallow Supraglottic Swallow Treatment Plan Appropriate for Continued Therapy Yes Dysphagia Goals Jose Carlos will perform double swallows for all bites/drinks to reduce pooling in pharynx. Jose Carlos will practice and perform supraglottic exercises as well as swallowing during all meals to increase tongue base strength and improve airway protection.
--- NOTE | 2018-11-06 14:28 | ST.IPDYTX ---
Care Team Visit Care Team Role Provider Type Phillip Wells MD Attending Provider Physician Primary Care Provider Specialty: Internal Medicine Address: [address] [place] [address], [id number] Email: [email or web address] ADMIN Dysphagia Treatment [employer] ADMIN Clinical Instructor Line Start: 10/08/18 18:09 Freq: Status: Active Protocol: Document 10/12/18 15:42 LNK (Rec: 10/12/18 15:42 LNK [id number]) Clinical Instructor Signature Clinical Instructor Clinical Instructor Yes: Isabella, PhD, [facility]- [employer] ADMIN [employer] ADMIN Dysphagia Treatment Start: 10/05/18 13:14 Freq: Status: Active Protocol: Document 11/06/18 13:32 LNK (Rec: 11/06/18 14:25 LNK [id number]) Dysphagia Treatment Session Time Visit Start Time 13:30 Visit Stop Time 14:10 Total Visit Minutes 40 Visit Information Visit Number 3 Plan of Care Dates 10/09/18-01/09/19 Setting Assessment Location Outpatient Care Visit Type Note Type Discharge Summary Patient Information Identification Type Name Picture Subjective Observations Jose Carlos and his attended the therapy session. Treatment Liquids Trialed Ice Chips Administration Type Tea Spoon Dependent Feeding Oral Strategies Upright at 90 degrees Double Swallow Controlled Bite/Sip Size Pharyngeal Strategies Sitting Upright (90 deg) Double Swallow Small Bites and Sips Treatment Activities Reviewed pt's swallow strengthening exercises with pt and his . Jose Carlos is doing well overall with eating and drinking. Spent time discussing swallowing down the road with both Jose Carlos and Angela . Discussed that they stay in touch with Dr. Wells and feel free to discuss the options with him as needed. Jose Carlos was slower today than in the past. he appeared tired, although he denied it. Angela remarked that he has been slowing down and may need to transition to a wheelchair soon. Encouraged Jose Carlos to continue his exercises in order to maintain his ability to eat what he wants as long as he can. He was in agreement. Was very clear that he did not want tube feeding. Assessment Patient Response to Treatment Good Rehab Potential Good Assessment of Improvement Jose Carlos and his both feel that Jose Carlos is doing well with his exercises and taking his time eating/drinking. They report that there is a reduction in the frequency of throat-clearing as well as coughing during meals. Mrs. Fitzpatrick has reported altering his diet with chopping his food into small pieces and making sure Jose Carlos takes his time and performs strengthening exercises. Therefore, they both think that it is time to take a break as things are stable currently. They will contact Dr. Wells if/when Jose Carlos's swallowing begins to change. Diet Recommendations Recommendations Continue Current Diet Liquids Order Thin Diet Order Regular Medication Recommendations As Tolerated Additional Dietary Needs Single Sips Aspiration Precautions Recommended Precautions Upright at 90 Degrees Small Bites/Sips Double Swallow Supraglottic Swallow Treatment Plan Appropriate for Continued Therapy No Dysphagia Goals Jose Carlos will perform double swallows for all bites/drinks to reduce pooling in pharynx. Jose Carlos will practice and perform supraglottic exercises as well as swallowing during all meals to increase tongue base strength and improve airway protection. Follow Up Plan Will discharge until pt/ contact this office/MD for dysphagia treatment
== END 2018-11-30 15:11 | disposition home or self-care (01) ==
LOC: SP 13:30
PROVIDERS: PCP Internal Medicine; Visit Provider Internal Medicine
DX: T17.908A Unspecified foreign body in respiratory tract, part unspecified causing other injury, initial encounter (principal); F80.9 Developmental disorder of speech and language, unspecified
CPT/HCPCS: 92507; 92526; 92610